=== PATIENT | female | born 1985 | race Caucasian/White ===

== ENCOUNTER 2021-02-24 04:52 | Day surgery (SDC) | payer OTHER ==
[2021-02-20 17:09] VITALS: BMI 23.6
[~2021-02-24 04:52] MED LIST: ACETAMINOPHEN 325 MG TABLET (FP) PO PRN; IBUPROFEN 400 MG TABLET (FP) PO PRN
[2021-02-24] MEDS ORDERED: PROPOFOL 20 ML ONE (07:33)
[2021-02-24] MEDS ORDERED: MIDAZOLAM HCL 2 MG/2 ML SINGLE DOSE VIAL ONE (07:33)
[2021-02-24] MEDS ORDERED: oxyCODONE HCL 5 MG TABLET PO PRN ×2 (07:55)
[2021-02-24] MEDS ORDERED: ONDANSETRON 4 MG/2 ML VIAL IVPUSH PRN (07:55)
[2021-02-24] MEDS ORDERED: KETOROLAC TROMETHAMINE 30 MG/1 ML VIAL ONE (07:56)
[2021-02-24] MEDS ORDERED: DEXAMETHASONE SOD PHOSPHATE 4 MG/1 ML VIAL ONE (07:56)
[2021-02-24] MEDS ORDERED: LACTATED RINGERS SOLUTION 1,000 ML IV SCH (08:00)
[2021-02-24 10:21] VITALS: BP 119/73; PULSE 62; TEMP 98.8
== END 2021-02-24 10:22 | disposition home or self-care (01) ==
LOC: JASU-SURG 04:52
PROVIDERS: ATTEND Obstetrics & Gynecology
PROC: 0UBC7ZX Excision of Cervix, Via Natural or Artificial Opening, Diagnostic (ICD-10-PCS; principal; 2021-02-24 07:30)
DX: D06.0 Carcinoma in situ of endocervix (principal); R87.820 Cervical low risk human papillomavirus (HPV) DNA test positive
CPT/HCPCS: 81025; 86850; 86900; 86901; 88305-TC; 94760